=== PATIENT | female | born 1995 | race Caucasian/White ===

== ENCOUNTER 2025-03-30 10:00 | Outpatient (REF) | payer OTHER, SELFPAY ==
[2025-03-30 10:22] LABS: MANUAL DIFF FLAG NO
[2025-03-30 11:06] LABS: Hematocrit 41.0 % (37.0-47.0); Hemoglobin 13.7 g/dl (12.0-16.0); Imm Gran Abs Auto 0.01 X10*3/uL (0.00-0.03); Imm Gran Pct Auto 0.2 % (0.0-0.4); Lymphocytes Absolute Auto 2.0 X10*3/uL (1.2-4.9); Mean Corpuscular HGB Conc 33.4 g/dl (31.0-35.0); Mean Corpuscular Hemoglobin 32.5 pg (27.0-33.0); Mean Corpuscular Volume 97.2 fL (80.0-98.0); NRBC Abs Auto 0.000 X10*3/uL (0.0-0.012); NRBC Pct Auto 0.0 /100WBC (0.0-0.2); Platelet Count 188 X10*3/uL (160-400); Red Blood Count 4.22 X10*6/uL (4.20-5.50); White Blood Count 5.9 X10*3/uL (4.8-10.8)
[2025-03-30 11:36] LABS: Alanine Aminotransferase 13 U/L (0-31); Albumin Level 4.9 g/dL (3.5-5.0); Alkaline Phosphatase 76 U/L (39-117); Anion Gap 11 (12-20); Aspartate Amino Transferase 22 U/L (5-31); Blood Urea Nitrogen 11 mg/dL (9-16); Calcium 9.3 mg/dL (8.4-10.2); Carbon Dioxide 28 mmol/L (22-29); Chloride 106 mmol/L (96-108); Estimated Glomerular Filt Rate > 60; Potassium 4.1 mmol/L (3.3-5.1); Sodium 141 mmol/L (135-145); Total Protein 7.9 g/dL (6.5-8.0)
--- OUTSIDE RECORDS SUMMARY | 2025-03-30 12:18 | XMS_ITS | Clinical Summary ---
Author Organization [facility] Address [address] [place] [address] Phone Care Team Providers Care Gmat Instructor Name Role Phone Physician, No Pcp Primary Care Provider Unavaila ble Allergies No known active allergies Medications hydrOXYzine HCL (ATARAX) 25 mg tablet Take 1 tablet (25 mg total) by mouth every 6 (six) hours if needed for itching. 20 tablet 11/23/2024 Active hydrocortisone 1 % topical cream Apply to affected area 2 times daily as needed for rash/itching. 30 g 11/23/2024 11/24/19 26 Active Active Problems No known active problems Social History Tobacco Use Types Packs/Day Years Used Date Smoking Tobacco: Never Assessed Comments Unknown Sex and Gender Information Value Date Recorded Sex Assigned at Not on file Legal Sex Female 12:46 PM EDT Gender Identity Not on file Sexual Orientation Not on file Obstetrics History Last Filed Vital Signs Vital Sign Reading Time Taken Comments Blood Pressure 124/63 11/23/2024 1:07 PM EDT Pulse 87 11/23/2024 1:07 PM EDT Temperature 36.8 C (98.2 F) 11/23/2024 1:07 PM EDT Respiratory Rate 18 11/23/2024 1:07 PM EDT Oxygen Saturation 98% 11/23/2024 1:07 PM EDT Inhaled Oxygen Concentration - - Weight 93 kg (205 lb) 11/23/2024 1:53 PM EDT Height 167.6 cm (5' 6 ) 11/23/2024 1:53 PM EDT Body Mass Index 33.09 11/23/2024 1:53 PM EDT Plan of Treatment Health Maintenance Due Date Last Done Comments DTaP,Tdap,and Td Vaccines (1 - Tdap) 2014 Hepatitis B Vaccines (1 of 3 - 19+ 3-dose series) 2014 Cervical Cancer Screening: P ap Smear 2016 Depression Screening 07/14/2024 HIV Screening 11/23/2024 Hepatitis C Screening 11/23/2024 Social Influencers of Health Screening 11/23/2024 COVID-19 Vaccine (1 - 2023-2 5 season) 2025 Influenza Vaccine (#1) 2025 HIB Vaccines Aged Out No longer eligi ble based on patient's age to complete this topic HPV Vaccines Aged Out No longer eligi ble based on patient's age to complete this topic Hepatitis A Vaccines Aged Out No long er eligible based on patient's age to complete this topic IPV Vaccines Aged Out No longer eligi ble based on patient's age to complete this topic MMR Vaccines Aged Out No longer eligi ble based on patient's age to complete this topic Meningococcal ACWY Vaccine Aged Out N o longer eligible based on patient's age to complete this topic Meningococcal B Vaccine Aged Out No l onger eligible based on patient's age to complete this topic Pneumococcal Vaccine: Pediat rics (0 to 5 Years) and At-Risk Patients (6 to 49 Years) Aged Out No longer eligible b ased on patient's age to complete this topic RSV Immunization Patients Un pepe 20 months Aged Out No longer eligible b ased on patient's age to complete this topic Varicella Vaccines Aged Out No longer eligible based on patient's age to complete this topic Insurance [address] [place] [address] [facility] Care Teams Gmat Instructor Relationship Specialty Start Date End Date Physician, No Pcp PCP - General 11/23/24
--- OUTSIDE RECORDS SUMMARY | 2025-03-30 12:18 | XMS_ITS | Clinical Summary ---
Author Organization [facility] Address [address] [place] [address] Care Team Providers Care Auto Washer Name Role Phone Unavailable Primary Care Provider Unavailabl e Source Comments PLEASE NOTE, if this patient is a minor, it may be UNLAWFUL to discuss sensitive information that is contained in these records (such as FAMILY PLANNING, MENTAL HEALTH or SUBSTANCE ABUSE) with the minor patient's parent or other person without the patient's specific authorization.[facility] Allergies No known active allergies Medications hydrOXYzine HCL (ATARAX) 25 mg tablet Take 2 Tablets by mouth every 6 (six) hours as needed for itching. 30 Tablet 1 11/30/2024 Active Active Problems Problem Noted Date Diagnosed Date Class 2 obesity due to exces s calories without serious comorbidity with body mass index (BMI) of 35.0 to 35.9 in adult 11/30/2024 Family History Medical History Relation Name Comments No Known Problems Brother 1 No Known Problems Brother 2 No Known Problems Father Diabetes Mother Hypertension Mother Relation Name Status Comments Brother 1 Alive Brother 2 Alive Father Alive Mother Alive Social History Tobacco Use Types Packs/Day Years Used Date Smoking Tobacco: Never Smokeless Tobacco: Never Tobacco Cessation:Counseling Given: Not Answered Alcohol Use Standard Drinks/Week Comments Never 0 (1 standard drink = 0.6 oz pur e alcohol) Safety and Environment Answer Date Cullen rded How often does anyone, inclu ding family and friends, physically hurt you? 1 11/30/2024 Comments No Sex and Gender Information Value Date Recorded Sex Assigned at Female 12/01/2024 6:00 AM PDT Legal Sex Female 9:18 AM PDT Gender Identity Female 12/01/2024 6:00 AM PDT Sexual Orientation Straight 12/01/2024 6: 00 AM PDT Last Filed Vital Signs Vital Sign Reading Time Taken Comments Blood Pressure 122/70 11/30/2024 10:21 AM EDT Pulse 77 11/30/2024 10:21 AM EDT Temperature 36.4 C (97.6 F) 11/30/2024 10:21 AM EDT Respiratory Rate 18 11/30/2024 10:21 AM EDT Oxygen Saturation - - Inhaled Oxygen Concentration - - Weight 98.5 kg (217 lb 3.2 oz) 11/30/2024 10:21 AM EDT Height 167.6 cm (5' 6 ) 11/30/2024 10:21 AM EDT Body Mass Index 35.06 11/30/2024 10:21 AM EDT Plan of Treatment Health Maintenance Due Date Last Done Comments Diabetes Screening 1995 HPV Screening 1995 Hepatitis C Screening 1995 Lipid Screening 1995 Pap + HPV 1995 HIV Screening 2010 Imm-DTaP/Tdap/Td (1 - Tdap) 2014 Imm-Hepatitis B (1 of 3 - 19+ 3-dose series) Cervical Cancer Screening 2016 Pap Smear 2016 Imm-HPV (1 - 3-dose SCDM series) 2022 [id number] ( season) 2025 Imm-Influenza (#1) 2025 Anxiety Screening 11/30/2025 11/30/2024 Hypertension Screening (#1) 11/30/2025 Relationship Safety Screening/Counseling 11/30/2025 11/30/2024 Tobacco Screening 11/30/2025 11/30/2024 Alcohol and Drug Screen Completed 11/30/2024 Depression Annual Screen Completed 11/30/2024 Cervical Ablation/Cold-Knife Conization Discontinued Cervical Cryotherapy Discontinued Colposcopy Discontinued Endometrial Biopsy Discontinued Excision/Leep Discontinued HPV Genotyping Discontinued Vaginal Pap Discontinued Vulvoscopy Discontinued Insurance [employer] Member Subscriber Plan / Payer (Ef fective 2024-Present) Name:Arti Alvarado Relation to Subscriber:Self Name:Arti Alvarado Payer ID:[id number] Type:[employer] Address: [id number] [place] [address]
[2025-03-30 12:33] LABS: Thyroid Stimulating Hormone 1.37 uIU/mL (0.32-4.0)
== END 2025-03-30 10:01 | disposition home or self-care (01) ==
LOC: HO.LAB 10:00
PROVIDERS: PCP Internal Medicine; Visit Provider Internal Medicine
DX: Z00.00 Encounter for general adult medical examination without abnormal findings (principal); K59.00 Constipation, unspecified
CPT/HCPCS: 36415; 80053; 84443; 85025